=== PATIENT | male | born 1955 | race Caucasian/White ===

== ENCOUNTER 2018-02-22 10:52 | Emergency (ER) | payer BC ==
[2018-02-22 11:21] VITALS: BP 130/70
[2018-02-22] MEDS ORDERED: Meclizine 25 MG Tab PO ONE (11:25)
--- NOTE | 2018-02-22 11:31 | EDM.PDOC ---
ED HPI GENERAL MEDICAL PROBLEM - General Chief Complaint: Neuro Symptoms/Deficits Stated Complaint: DIZZINESS/VERTIGO Time Seen by Provider: 02/22/18 11:15 Source of Information: Reports: Patient, Old Records History Limitations: Reports: No Limitations - History of Present Illness INITIAL COMMENTS - FREE TEXT/NARRATIVE: 62 yo male here with vertigo sx's since Friday. Gets worse with changes in head position. Currently when lying on our cart he is minimally dizzy and has no nausea. He has had this in the past, but not nearly as severe or persistent. Noticed a prickly feeling on the right side of his face on the way to the ER today. No HART. No fever. He tried essential oils and hydrogen peroxide in his ears + candling without benefit. Onset Date: 02/20/18 Duration: Day(s): (2), Waxing/Waning Location: Reports: Head Severity: Mild (currently, worse with movement of his head side to side.) Improves with: Reports: Rest Worsens with: Reports: Movement (of head) Context: Reports: Other (unknown) Associated Symptoms: Denies: Diaphoresis, Fever/Chills, Headaches, Nausea/ Vomiting Treatments KNIFER UP: Reports: Other (see below) (See HPI) - Related Data Allergies Allergy/AdvReac Type Severity Reaction Status Date / Time amoxicillin [Amoxicillin] Allergy Cannot Verified 02/22/18 11:30 Remember Home Meds: Home Meds Meclizine [Antivert] 25 mg PO Q6H PRN #30 tab 02/22/18 [Rx] Past Medical History Immunologic History: Reports: Other (See Below) 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 Denies: Headache, Numbness, Paresthesia, Seizure, Syncope, Tremors, Trouble Speaking, Difficulty Walking, Weakness, Gait Disturbance ED EXAM, NEURO - Physical Exam Exam: See Below Exam Limited By: No Limitations General Appearance: Alert, WD/WN, No Apparent Distress Eye Exam: Right Eye: PERRL, Bilateral Eye: EOMI, Nystagmus (minimal at this time.) Ears: Normal External Exam, Normal Canal, Hearing Grossly Normal, Normal TMs Nose: Normal Inspection, Normal Mucosa, No Blood Throat/Mouth: Normal Inspection, Normal Lips, Normal Oropharynx, Normal Voice, No Airway Compromise Head Exam: Atraumatic, Normocephalic Neck: Normal Inspection. No: Carotid Bruit, Lymphadenopathy (R), Lymphadenopathy (L) Respiratory/Chest: No Respiratory Distress, Lungs Clear, Normal Breath Sounds, No Accessory Muscle Use Cardiovascular: Regular Rate, Rhythm, No Edema GI/Abdominal: Normal Bowel Sounds, Soft, Non-Tender, No Distention Neurological: Alert, Normal Mood/Affect, CN II-XII Intact, No Motor/Sensory Deficits, Oriented x 3 Extremities: Normal Inspection, Normal Range of Motion, Non-Tender, No Pedal Edema Psychiatric: Normal Affect, Normal Mood Skin Exam: Warm, Dry, Intact, Normal Color, No Rash Course - Vital Signs Text/Narrative:: Feeling a lot better after meclizine 25 mg po Last Recorded V/S: Last Vital Signs Temp 35.7 C 02/22/18 11:38 Pulse 85 02/22/18 11:38 Resp 15 02/22/18 11:38 BP 130/70 02/22/18 11:38 Pulse Ox 98 02/22/18 11:38 Orthostatic Blood Pressure [ 129/77 Standing] Orthostatic Blood Pressure [ 122/81 Sitting] Orthostatic Blood Pressure [ 129/75 Supine] - Orders/Labs/Meds Meds: Medications Discontinued Medications Generic Name Dose Route Start Last Admin Trade Name Freq PRN Reason Stop Dose Admin Aspirin 324 mg 02/22/18 11:33 02/22/18 11:41 Aspirin PO 02/22/18 11:34 324 mg ONETIME ONE Administration Meclizine HCl 25 mg 02/22/18 11:25 02/22/18 11:41 Antivert PO 02/22/18 11:26 25 mg ONETIME ONE Administration Departure - Departure Time of Disposition: 12:25 Disposition: Home, Self-Care 01 Condition: Good Clinical Impression: BPV (benign positional vertigo) Qualifiers: Laterality: unspecified laterality Qualified Code(s): H81.10 - Benign paroxysmal vertigo, unspecified ear - Discharge Information Prescriptions: Meclizine [Antivert] 25 mg PO Q6H PRN #30 tab PRN Reason: Dizziness Referrals: PCP,None [Primary Care Provider] - Forms: ED Department Discharge Additional Instructions: Use meclizine as needed for vertigo. May try the Jordi's maneuvers at home if needed. Take a baby aspirin daily with food and work on cutting back/quitting smoking. Recheck here or in the clinic as needed.
[2018-02-22] MEDS ORDERED: Aspirin 81 MG Tab.Chew PO ONE (11:33)
== END 2018-02-22 12:39 | disposition home or self-care (01) ==
LOC: JP.ED 10:52
DX: H81.10 Benign paroxysmal vertigo, unspecified ear (principal); Z88.1 Allergy status to other antibiotic agents
CPT/HCPCS: 99284; A9270

== ENCOUNTER 2024-02-12 07:44 | Day surgery (SDC) | payer MEDICARE, BC ==
[~2024-02-12 07:44] MED LIST: Midazolam 1 MG/ML 2 ML SDV ONE; Propofol 200 MG/20 ML SDV ONE; fentaNYL 50 MCG/ML SDV ONE
[2024-02-12] MEDS: Sodium Chloride 0.9% 1,000 ML IV SCH (08:35)
[2024-02-12] MEDS: Dicyclomine 10 MG Cap PO ONE (12:19)
[2024-02-12 12:22] VITALS: BP 153/87; PULSE 71
== END 2024-02-12 13:05 | disposition home or self-care (01) ==
LOC: JP.SDS 07:44
PROVIDERS: ATTEND Surgery
DX: Z12.11 Encounter for screening for malignant neoplasm of colon (principal); K63.5 Polyp of colon; K57.30 Diverticulosis of large intestine without perforation or abscess without bleeding; Z86.010 Personal history of colon polyps; G47.33 Obstructive sleep apnea (adult) (pediatric); F17.200 Nicotine dependence, unspecified, uncomplicated; Z88.0 Allergy status to penicillin
CPT/HCPCS: 45380; 45385; 88305; A9270; J2250; J2704; J3010; J7030